=== PATIENT | male | born 1970 | race Caucasian/White ===

== ENCOUNTER 2020-02-04 14:49 | Outpatient (CLI) | payer BC | END 2020-02-04 14:50 | disposition home or self-care (01) | LOC: COV 14:49 | PROVIDERS: ATTEND Family Medicine | DX: R05 Cough (principal); R50.9 Fever, unspecified | CPT/HCPCS: 81599 ==

== ENCOUNTER 2023-02-22 14:30 | Outpatient (CLI) | payer BC ==
--- NOTE | 2023-02-22 15:52 | Ultrasound Report ---
PROCEDURE: Duplex Ext Veins Left INDICATIONS: LEFT LOCALIZED SWELLING ON LEG TECHNIQUE: Real-time imaging, as well as color and pulse Doppler interrogation, were performed of the lower extr emity deep veins from the inguinal ligament to the popliteal fossa. COMPARISON: None. FINDINGS: The deep veins are normally compressible, and free of intraluminal thrombus. Color and pu lse Doppler demonstrate normal phasic intraluminal flow. There is normal augmentation response to di stal compression maneuver. Intraluminal filling defect is seen within varicose veins in posterior aspect of distal left thigh. IMPRESSION: 1. No evidence of deep venous thrombosis in visualized left lower extremity veins. 2. Superficial venous thrombosis within varicose veins in posterior distal left thigh. Reviewed by: Paulo De Leon MD on 02/22/2023 3:50 PM PDT Approved by: Paulo De Leon MD on 02/22/2023 3:50 PM PDT Station ID: [id number]
== END 2023-02-22 14:31 | disposition home or self-care (01) ==
LOC: DI 14:30
PROVIDERS: ATTEND Registered Nurse
DX: I82.812 Embolism and thrombosis of superficial veins of left lower extremity (principal); I83.92 Asymptomatic varicose veins of left lower extremity

== ENCOUNTER 2023-02-28 08:00 | Outpatient (CLI) | payer BC ==
[2023-02-28 17:49] LABS: PT - PROTHROMBIN TIME 10.8 secs (9.9-12.6)
[2023-02-28 17:50] LABS: BASOPHILS # (AUTO) 0.1 10^3/uL (0.0-0.1); BASOPHILS % (AUTO) 0.8 %; EOSINOPHILS # (AUTO) 0.1 10^3/uL (0.0-0.7); EOSINOPHILS % (AUTO) 1.9 %; HCT - HEMATOCRIT 40.1 % (42.0-52.0); HGB - HEMOGLOBIN 13.7 g/dL (14.0-18.0); LYMPHOCYTES # (AUTO) 1.4 10^3/uL (1.5-3.5); LYMPHOCYTES % (AUTO) 18.9 %; MEAN CORPUSCULAR HEMOGLOBIN 33.3 pg (27.0-31.0); MEAN CORPUSCULAR HGB CONC 34.2 g/dL (32.0-36.0); MEAN CORPUSCULAR VOLUME 97.6 fL (80.0-94.0); MEAN PLATELET VOLUME 10.3 fL (7.4-11.4); MONOCYTES # (AUTO) 0.4 10^3/uL (0.0-1.0); MONOCYTES % (AUTO) 5.6 %; NEUTROPHILS # (AUTO) 5.3 10^3/uL (1.5-6.6); PLT - PLATELET COUNT 200 10^3/uL (130-450); RED BLOOD COUNT 4.11 10^6/uL (4.70-6.10); RED CELL DISTRIBUTION WIDTH 11.9 % (12.0-15.0); WHITE BLOOD COUNT 7.3 x10^3/uL (4.8-10.8)
[2023-02-28 18:20] LABS: CALCIUM 9.3 mg/dL (8.5-10.3); CREATININE 0.9 mg/dL (0.6-1.2); POTASSIUM 4.3 mmol/L (3.5-5.0)
== END 2023-02-28 23:59 | disposition home or self-care (01) ==
LOC: LAB.N 08:00
PROVIDERS: ATTEND Nurse Practitioner
DX: I80.9 Phlebitis and thrombophlebitis of unspecified site (principal)
CPT/HCPCS: 36415; 80048; 85025; 85379; 85610; 85730

== ENCOUNTER 2023-02-28 19:37 | Emergency (ER) | payer BC ==
--- NOTE | 2023-02-28 20:02 | ED Physician Documentation ---
History of Present Illness - Stated complaint Stated Complaint: LFT LEG CONCERNS - Chief complaint Chief Complaint: Ext Problem - History obtained from History obtained from: Patient, Family - Additonal information Additional information: 53-year-old gentleman with history of Pituitary gigantism status post pituitary surgery with cardiomegaly, varicose veins and arthritis presents for reevaluation of left leg pain. He has had pain and swelling in the back of the left thigh for the last 2 to 3 weeks. He was seen in clinic and had an ultrasound done showing superficial phlebitis. He was supposed to have a recheck in a week, today he had a recheck and they did a D-dimer which was mildly elevated and he was referred here for further evaluation and treatment. PD PAST MEDICAL HISTORY - Past Medical History Cardiovascular: Peripheral Vascular Disease - Past Surgical History Past Surgical History: No - Present Medications Home Medications: Ambulatory Orders Medication Instructions Recorded Confirmed Doxycycline Hyclate [Vibramycin] 100 mg PO BID #19 capsule 02/17/16 HYDROcod/ACETAM 5/325 [Vicodin 1 - 2 ea PO Q6H PRN #15 tablet 02/17/16 5/325] Apixaban [Eliquis] 2.5 mg PO BID #90 tablet 02/28/23 - Allergies Allergies/Adverse Reactions: Allergies Allergy/AdvReac Type Severity Reaction Status Date / Time No Known Drug Allergies Allergy Verified 02/28/23 19:40 - Social History Does the pt smoke?: Yes Smoking Status: Current every day smoker Does the pt drink ETOH?: Yes Does the pt have substance abuse?: No - Immunizations Immunizations are current?: No PD ED PE NORMAL - Vitals Vital signs reviewed: Yes - General General: Alert and oriented X 3, No acute distress - Cardiac Cardiac: RRR, No murmur - Extremities Extremities: Other (There is swelling and discoloration extending from the mid medial left thigh posteriorly and then laterally. No calf tenderness or swelling.) - Neuro Neuro: Alert and oriented X 3, Normal speech Results - Vitals Vitals: Vital Signs - 24 hr 02/28/23 19:40 Temperature 36.5 C Heart Rate 77 Respiratory 16 Rate Blood Pressure 147/73 H O2 Saturation 96 Oxygen O2 Source Room air - EKG (time done) 2017 EKG releavant findings:: EKG personally interpreted by author of this note. Relevant findings are: Rate: Rate (enter#) (68) Rhythm: NSR [place]: Normal Intervals: Normal SC, Other (LAFB) QRS: Normal Ischemia: No: ST elevation c/w ischemia, ST depression - Rads (name of study) LLE DVT sono Relevant Findings:: Prelim report reviewed PD Medical Decision Making - ED course ED course: 53-year-old gentleman presents with superficial phlebitis which is extending both clinically per his description and radiographically. Still no deep vein t hrombosis but reasonable to start him on low-dose anticoagulation pending follow-up. Departure - Departure Disposition: Home, Self Care Clinical Impression: Superficial thrombophlebitis Condition: Good Record reviewed to determine appropriate education?: Yes Instructions: ED Phlebitis Superficial Prescriptions: Apixaban [Eliquis] 2.5 mg PO BID #90 tablet Comments: Since your superficial blood clots are extending, we have made the decision to start you on low-dose anticoagulation for the next 45 days. Or follow-up with your primary care physician in a week or 2, return if worse.
[2023-02-28] MEDS ORDERED: APIXABAN 5 MG TABLET PO STA (20:55)
[2023-02-28 21:02] VITALS: BP 160/73
--- NOTE | 2023-02-28 21:42 | Ultrasound Report ---
PROCEDURE: Duplex Ext Veins Left INDICATIONS: leg pain TECHNIQUE: Real-time imaging, as well as color and pulse Doppler interrogation, were performed of the lower extr emity deep veins from the inguinal ligament to the popliteal fossa. COMPARISON: Left lower extremity Doppler ultrasound 02/22/2023. FINDINGS: The deep veins are normally compressible, and free of intraluminal thrombus. Color and pu lse Doppler demonstrate normal phasic intraluminal flow. There is normal augmentation response to di stal compression maneuver. There are filling defects within varicose veins demonstrated in the mid to distal thigh consistent wi th superficial venous thrombosis. IMPRESSION: 1. No evidence of deep venous thrombosis in the left lower extremity. 2. Superficial venous thrombosis redemonstrated within varicose veins in the mid to distal left thigh . Reviewed by: Kalin Pal MD on 02/28/2023 9:41 PM PDT Approved by: Kalin Pal MD on 02/28/2023 9:41 PM PDT Station ID: [id number]
== END 2023-02-28 21:02 | disposition home or self-care (01) ==
LOC: ED 19:37
DX: I82.812 Embolism and thrombosis of superficial veins of left lower extremity (principal); F17.200 Nicotine dependence, unspecified, uncomplicated
CPT/HCPCS: 36415; 80048; 85025; 85379; 85610; 85730; 93005; 93971; 99284; A9270

== ENCOUNTER 2024-06-27 15:00 | Outpatient (CLI) | payer BC ==
--- NOTE | 2024-06-28 18:20 | XRAY Report ---
Knee 3V LT HISTORY: 54 years of age, PAIN IN LEFT KNEE TECHNIQUE: Knee 3V LT COMPARISON: None. FINDINGS/IMPRESSION: Chondrocalcinosis, representing CPPD arthropathy. Small left knee effusion. Minimal tricompartmental osteoarthritis. No acute fracture or dislocation. Reviewed by: Lashell Lopez MD on 06/28/2024 6:19 PM PDT Approved by: Lashell Lopez MD on 06/28/2024 6:19 PM PDT Station ID: [id number]
== END 2024-06-27 15:15 | disposition home or self-care (01) ==
LOC: DI.N 15:00
PROVIDERS: ATTEND Physician Assistant
DX: M11.262 Other chondrocalcinosis, left knee (principal); M25.462 Effusion, left knee; M17.12 Unilateral primary osteoarthritis, left knee